=== PATIENT | female | born 1955 ===

== ENCOUNTER 2025-05-02 06:00 | Day surgery (SDC) | payer OTHER ==
[2025-04-26 15:02] VITALS: BP 146/79
[~2025-05-02] VITALS: Ht 167.6 cm; Wt 89.4 kg
[~2025-05-02 06:00] MED LIST: ATACAND16 MG PO; ATARAX25 MG PO; JARDIANCE25 MG; KAPSPARGO SPRIN25 MG; LASIX20 MG PO; LIPITOR40 M1 PO; NEURONTIN600 M1 PO; PLAVIX75 MG PO
[2025-05-02] MEDS ORDERED: GENTAMICIN SULFATE 40 MG/ML VIAL ONE (06:51)
[2025-05-02] MEDS ORDERED: LIDOCAINE HCL 1%/EPINEPHRINE 20ML VIAL IJ ONE ×2 (06:51→06:52)
[2025-05-02] MEDS ORDERED: CHLORHEXIDINE GLUCONATE 120 ML BOTTLE TOP ONE (06:51)
[2025-05-02] MEDS ORDERED: MACROBID 100 M100 MG PO (09:08)
[2025-05-02] MEDS ORDERED: TRAM1TAB98 PO (09:09)
== END 2025-05-02 11:30 | disposition home or self-care (01) ==
LOC: CIR.AMB 06:00
PROVIDERS: ATTEND Obstetrics & Gynecology Gynecology
DX: N81.11 Cystocele, midline (principal); N81.5 Vaginal enterocele; N81.6 Rectocele; Z88.2 Allergy status to sulfonamides; Z91.041 Radiographic dye allergy status; Z91.013 Allergy to seafood